=== PATIENT | male | born 1960 | race Caucasian/White ===

== ENCOUNTER 2017-09-29 17:33 | Emergency (ER) | payer MEDICARE ==
[2017-09-29 18:20] LABS: BASOPHILS 0.2 % (0-2); EOSINOPHILS 0.2 % (0-7); HEMATOCRIT 47.9 % (42.0-54.0); HEMOGLOBIN 16.8 g/dL (13.5-17.5); IMMATURE GRANULOCYTES 0.2 % (0-5); LYMPHOCYTES 17.1 % (15-50); MCH 32.1 pg (26.0-34.0); MCHC 35.1 g/dL (31.0-37.0); MCV 91.4 fL (80.0-100.0); MONOCYTES 12.7 % (2-11); NEUTROPHILS 69.6 % (40-80); RBC 5.24 10x6/uL (4.20-6.10); RDW 12.2 % (11.5-14.5)
[2017-09-29 18:33] LABS: PLATELET COUNT 150 10x3/uL (130-400)
[2017-09-29 18:39] LABS: APTT 26.4 SECONDS (22.8-39.4)
[2017-09-29 18:40] LABS: D-DIMER-QUANTITATIVE 0.52 ug/mLFEU (0.20-0.54)
[2017-09-29 18:44] LABS: ALBUMIN 4.1 g/dL (3.4-5.0); ALKALINE PHOSPHATASE 72 U/L (46-116); ALT (SGPT) 38 U/L (10-68); BILIRUBIN - TOTAL 0.28 mg/dL (0.2-1.3); CALC OSMOLALITY 275 mosm/kg (275-300); CALCIUM 8.6 mg/dL (8.5-10.1); CARBON DIOXIDE 24.8 mmol/L (21.0-32.0); CHLORIDE - SERUM 102 mmol/L (98-107); CREATININE - SERUM 1.3 mg/dL (0.6-1.3); GLUCOSE 152 mg/dL (74-106); POTASSIUM - SERUM 3.5 mmol/L (3.5-5.1); PROTEIN - SERUM 8.1 g/dL (6.4-8.2); SODIUM 137 mmol/L (136-145); UREA NITROGEN 10 mg/dL (7-18); eGFR NON AFRICAN AMERICAN 60 mL/min (90-120)
[2017-09-29 18:49] LABS: MAGNESIUM - SERUM 1.9 mg/dL (1.8-2.4)
[2017-09-29 19:00] LABS: TROPONIN-I < 0.017 ng/mL (0.000-0.060)
== END 2017-09-29 21:41 | disposition home or self-care (01) ==
LOC: D.ER 17:33
PROVIDERS: Family Medicine
DX: R07.9 Chest pain, unspecified (principal); K52.9 Noninfective gastroenteritis and colitis, unspecified; I10 Essential (primary) hypertension; I50.9 Heart failure, unspecified

== ENCOUNTER 2017-10-02 08:59 | Observation (INO) | payer MEDICARE ==
[~2017-10-02] VITALS: Ht 170.2 cm; Wt 81.6 kg
--- NOTE | ~2017-10-02 | EC ---
PATIENT:TA CHASE DATE OF SERVICE: 10/02/17 SEX: M MEDICAL RECORD: [id number] DATE OF : 60 LOCATION:D.M2 D.210 AGE OF PATIENT: 57 ADMISSION DATE: 10/02/17 REFERRING PHYSICIAN: INTERPRETING PHYSICIAN: FERNANDO SMALLWOOD MD ECHOCARDIOGRAM REPORT ECHO CHARGES 4 ECHO COMPLETE CLINICAL DIAGNOSIS: CHEST PAIN, HX CCAD/STENTS/HTN ECHOCARDIOGRAPHIC MEASUREMENTS (adult normal given) AC root (d.<3.7cm) 3.6 cm LV Septum d (<1.2 cm> 0.9 cm Valve Excursion 1.8 cm LV Septum (systole) 1.0 cm Left Atria (s.<4.0cm> 3.5 cm LVPW d(<1.2cm) 1.2 cm RV (d.<2.3cm) 4.2 cm LVPW (sytole) 1.6 cm LV diastole(<5.6CM) 5.6 cm MV E-F(>70mm/sec) cm LV systole 4.3 cm LVOT Diameter 1.9 cm MV exc.(>10mm) 1.7 cm Est.ejection fraction (50-75%) % Pericardial Effusion N DOPPLER: LVIT cm/sec A 71.0 cm/sec E 63.0 cm/sec LA cm/sec RVSP mmHg LVOT 117 cm/sec AOP1/2T m/s Asc. Ao 121 cm/sec RVOT 75 cm/sec RA cm/sec PA 119 cm/sec AV Gradient Peak 5.82 mmHg AV Mean 2.92 mmHg AV Area 2.8 cm MV Gradient Peak 2.11 mmHg MV Mean 0.82 mmHg MV Area cm COMMENTS: Environmental Officer: Minnie CASILLAS [employer] Supervisor: Tracy Smallwood TAPE# PACS DATE OF SERVICE: 10/03/2017 PROCEDURE: Transthoracic echocardiogram. FINDINGS: 1. The left ventricle shows evidence of mild left ventricular hypertrophy. Inflow characteristics are consistent with diastolic dysfunction. Ejection fraction is 55% to 60%. Aortic valve is normal. 2. The mitral valve has trace mitral regurgitation, otherwise normal. 3. The tricuspid valve is normal. ECHOCARDIOGRAM REPORT [id number] TA CHASE 4. The pericardium is normal. 5. There is no pleural effusion or pericardial effusion. 6. The right atrium and right ventricle are mildly dilated with normal function. CONCLUSION: The patient has evidence of hypertensive heart disease, otherwise normal echocardiogram. TRANSINT:[id number] Voice Confirmation ID: [id number] DOCUMENT ID: [id number] FERNANDO SMALLWOOD MD at 1140 CC: [id number] DICTATION DATE: 10/03/17 165 MANAGER MAC: 10/03/17 1808 ADM IN [id number] [place] [address]
--- NOTE | ~2017-10-02 | OP ---
PATIENT NAME: TA CHASE MEDICAL RECORD: [id number] :60 LOCATION:D.[facility] D.2108 ADMISSION DATE:10/02/17 SURGEON: PETTY NICHOLAS DO DATE OF OPERATION: 10/04/2017 PROCEDURE: EGD with biopsies. INDICATIONS FOR PROCEDURE: Melena and abdominal pain. SCOPE: Olympus video gastroscope. MEDICATIONS: Propofol 400 mg IV per anesthesia. ESTIMATED BLOOD LOSS: Less than 3-5 mL. COMPLICATIONS: None. FINDINGS: Informed consent was given. The patient was made comfortable with the above medication. After reaching an adequate level of sedation by slow IV push, the patient was placed on his left side. The endoscope was then advanced under direct visualization through the mouth to the second portion of the duodenum. In the proximal esophagus, there were few small patches of ectopic gastric mucosa. The middle and distal esophagus appeared normal. At the GE junction, there was moderate evidence of LA class C reflux induced esophagitis as well as possible Virk esophagus and some congestion, edematous tissue, which was continuous into the cardia. I cannot rule out gastric varices which were extending into the esophagus. There was grade I esophageal varices without bleeding stigmata. Two cold forceps biopsies were taken of the GE junction and cardia simultaneously. The endoscope was advanced beyond the GE junction into the stomach and retroflexed to view the cardia and fundus. Appearances were similar to findings from the proximal side. There was edema and congestion as well as erythema and granularity consistent with moderate to severe gastritis. A biopsy was taken from the cardia from the distal side within the stomach. The body of the stomach appeared normal. In the antrum and prepyloric region, there was some erythema and granularity consistent with gastritis. No random biopsies were taken on this examination to prevent further unnecessary bleeding. The endoscope was advanced beyond the pylorus into the duodenum. The bulb and second portion of the duodenum exhibited severe duodenitis. There were areas of ulcerations and denuded mucosa with mucosal villous atrophy. There were multiple areas of erythema which appeared that they could be hemorrhagic if touched. There were no large penetrating ulcers visualized on the examination. Two cold forceps biopsies were taken from the duodenum to rule out pathology. The endoscope was then withdrawn from the patient. The patient tolerated the procedure well and there were no complications. IMPRESSION: 1. 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 2. Grade I esophageal varices in the distal esophagus. 3. Reflux esophagitis grade C as well as congestion and inflamed mucosa in conjunction with the cardia. 4. A small to moderate sized hiatal hernia, which is likely playing a role in the stressed cardia tissue which is edematous and inflamed. 5. Gastritis. 6. Duodenitis. OPERATIVE REPORT [id number] TA CHASE PLAN AND RECOMMENDATIONS: 1. Return to floor and monitor for further bleeding. There was some bleeding from our biopsies, so further melena is possible from today's procedure. 2. Continue proton pump inhibitor therapy at 40 mg equivalent b.i.d. for 60 days. 3. Follow up biopsy specimen results. 4. Carafate 1 gram p.o. q.i.d. times 2 weeks. 5. Pepcid 20 mg p.o. at bedtime or IV while inpatient. 6. We will follow up biopsy specimen results and treat accordingly if indicated. 7. We will check H. pylori stool antigen to rule out H. pylori. TRANSINT:[id number] Voice Confirmation ID: [id number] DOCUMENT ID: [id number] PETTY NICHOLAS DO at 1444 CC: [id number] DICTATION DATE: 10/04/17 1250 PRESS SERVICE READER: 10/04/17 1337 DIS IN 10/05/17 [facility] [address] [place] [address]
--- NOTE | ~2017-10-02 | HP ---
PATIENT: TA CHASE MEDICAL RECORD: [id number] ACCOUNT: [id number] LOCATION:[address] : 60 ADMISSION DATE: 10/02/17 HISTORY AND PHYSICAL EXAMINATION DATE OF ADMISSION: 10/02/2017 CHIEF COMPLAINT: Abdominal pain and chest pain. HISTORY OF PRESENT ILLNESS: This is a 57-year-old white male followed by Dr. Janes Ramesh but comes over here because his general warehouse worker is Dr. Kilpatrick who presented to the [facility] 3 days ago with right upper quadrant abdominal pain. He has not been able to eat due to this pain for about a week. States he has had some dark stools, no bright red blood. He has had his gallbladder out. Also, 3 days ago, he was complaining of some chest tightness. He felt clammy and sweaty and felt like he was going to pass out but did not. This morning he got up, still has abdominal pain. He went to the bathroom, sat on the commode and the next thing he knows it has been about 2 hours later and wakes up on the floor of the bathroom and he was then brought to the Emergency Room. Hemoccult there was positive. He is not anemic and rest of his lab does not look too bad but he is admitted for GI pain with heme-positive stool and chest pain. PAST MEDICAL AND SURGICAL HISTORY: He has hypertension and hyperlipidemia. Has had coronary artery disease. He states he has had [address] Kilpatrick is his general warehouse worker. 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 He was treated by Donal Spangler and his hepatitis has resolved. He states he has had 2 heart attacks. He reports a colonoscopy by Dr. Sanchez approximately 6 months ago and we do not have a report here. PAST SURGICAL HISTORY: Cholecystectomy, right shoulder surgery, ORIF of right hip fracture, has had 5 back surgeries, has had coronary stents. ALLERGIES: REPORTEDLY TO DEMEROL AND CODEINE. HOME MEDICATIONS: Fenofibrate 160 mg once a day, pravastatin 40 mg once a day, lisinopril 20 mg once a day, carvedilol 6.25 mg twice a day, amlodipine 10 mg once a day, Purling 10 p.r.n., clonidine 0.1 if his systolic pressure goes above 200. SOCIAL HISTORY: He is single, disabled from his back injuries. FAMILY HISTORY: Father is alive. He has hypertension and diabetes. Mother with what sounds like renal failure. REVIEW OF SYSTEMS: GENERAL: He reports weight loss over the last week because of his abdominal pain and is not able to eat. HEENT: No particular sinus or allergy problems. RESPIRATORY: No diagnosis of emphysema or asthma. CARDIAC: Has a history of coronary artery disease with 2 MIs and has stents, followed by Dr. Kilpatrick. GASTROINTESTINAL: He has had a history of hepatitis C, now treated. Reportedly colonoscopy about 6 months ago, it was okay. He states he has never had an upper GI or an EGD. HISTORY AND PHYSICAL [id number] TA CHASE MUSCULOSKELETAL: Basically has chronic back pain. NEUROLOGIC: No migraines. No seizures. PSYCHIATRIC: Denies depression or melancholia. PHYSICAL EXAMINATION: VITAL SIGNS: Temperature 97.5, pulse 61, respirations 21, blood pressure 140/102, O2 sat 98%. GENERAL: He does not appear to be in acute distress at this time. HEENT: Grossly within normal limits. NECK: Supple. No JVD or bruit. HEART: Regular rate and rhythm. LUNGS: Fairly clear. ABDOMEN: Soft. There is tenderness in the epigastric and right upper quadrant area. No mass. No guarding, no rebound. Bowel sounds are active. EXTREMITIES: No edema. NEUROLOGIC: Intact. LABORATORY DATA: Hemoccult was positive. CT of the abdomen and pelvis shows nothing acute. CT of the chest shows nothing acute. EKG has nonspecific changes. Troponin has been less than 0.017, 3 times. Urinalysis looks good. CBC with a white count of 5300, hemoglobin 17.3, hematocrit 49.3, platelets number 124,000. Basic metabolic panel is all okay. Liver functions are okay. Amylase and lipase were all okay. ASSESSMENT: 1. Epigastric abdominal pain. 2. Heme-positive stool. 3. Chest pain with a history of coronary artery disease. PLAN: We will consult GI here for this heme-positive stool and ongoing abdominal pain. We will ask cardiology to see him. Even though his cardiac enzymes were all normal, he states that some of his symptoms were like when he has had some blockages noted. Other tests and procedures as warranted. TRANSINT:[id number] Voice Confirmation ID: [id number] DOCUMENT ID: [id number] HISTORY AND PHYSICAL [id number] TA CHASE WILLIAM MD at 0748 CC: [id number] DICTATION DATE: 10/02/172205 LAWN MOWER: 10/02/17 2310 ADM IN [id number] [place] [address]
--- NOTE | ~2017-10-02 | DS ---
PATIENT:TA CHASE :60 MEDICAL RECORD: [id number] DISCHARGE SUMMARY ADMISSION DATE: 10/02/17 DISCHARGE DATE: 10/05/17 DATE OF ADMISSION: 10/02/2017 DATE OF DISCHARGE: 10/05/2017 DISCHARGE DIAGNOSES: 1. Chest pain. 2. Melena. 3. Abdominal pain. HISTORY OF PRESENT ILLNESS: This 57-year-old presented complaining of abdominal and chest pains. He was not able to eat much in the last week due to pain in the abdomen. He noted some dark stool, no red or bright red blood. About 3 days before admission, he came to the ER with this abdominal pain felt clammy and sweaty, but that resolved, he was sent home. He came back on day of admission with worsening symptoms plus he had gone to the bathroom, sat down on the commode, and next thing he knew he woke up on the floor. He states it had been 2 hours that he was down. He was brought in, his cardiac enzymes were negative times 3. Cardiology was consulted as he has history of coronary artery disease. Echocardiogram was okay. They felt there was nothing more cardiac marsh to do at this time. GI was consulted and the patient underwent EGD on 10/04/2017, showing ectopic gastric mucosa in the proximal esophagus, grade I varices in the distal esophagus and LA class C reflux. There was inflamed tissue at the GE junction and biopsy was obtained. He was started on Protonix 40 mg twice a day to take for 60 days and Carafate 1 gm before meals and at bedtime for 14 days. He feels much better and wants to go home today. DISCHARGE MEDICATIONS: Include Carafate suspension 1 gm before means and at bedtime; Protonix 40 mg twice a day; continue pravastatin 40 mg once a day; lisinopril 20 mg once a day; fenofibrate 160 mg once a day; carvedilol 6.25 mg twice a day; Norvasc 10 mg once a day. He will follow up with Dr. Modi or Dr. Sanchez, whichever one he wants to see. He will follow up with Dr. Janes Ramesh his PCP in 1 to 2 weeks. TRANSINT:[id number] Voice Confirmation ID: [id number] DOCUMENT ID: [id number] BRYAN WHITMAN MD at 1202 CC: [id number] DICTATION DATE: 10/05/17 0850 DIRECTOR CASE MANAGEMENT: 10/05/17 1142 DIS IN 10/05/17 [place] [id number] [place] [address]
[2017-10-02 09:21] LABS: BASOPHILS 0.4 % (0-2); EOSINOPHILS 0.2 % (0-7); HEMATOCRIT 49.3 % (42.0-54.0); HEMOGLOBIN 17.6 g/dL (13.5-17.5); IMMATURE GRANULOCYTES 0.2 % (0-5); LYMPHOCYTES 34.1 % (15-50); MCH 31.8 pg (26.0-34.0); MCHC 35.7 g/dL (31.0-37.0); MEAN PLATELET VOLUME 11.5 fL (7.4-10.4); MONOCYTES 11.6 % (2-11); NEUTROPHILS 53.5 % (40-80); PLATELET COUNT 124 10x3/uL (130-400); RBC 5.54 10x6/uL (4.20-6.10); RDW 12.3 % (11.5-14.5); WBC 5.3 10x3/uL (4.8-10.8)
[2017-10-02 09:51] LABS: ANION GAP 15.8 mmol/L (8-16); BILIRUBIN - TOTAL 0.39 mg/dL (0.2-1.3); CALCIUM 8.9 mg/dL (8.5-10.1); CARBON DIOXIDE 21.8 mmol/L (21.0-32.0); CREATININE - SERUM 1.3 mg/dL (0.6-1.3); POTASSIUM - SERUM 3.6 mmol/L (3.5-5.1); PROTEIN - SERUM 8.1 g/dL (6.4-8.2)
[2017-10-02 10:04] LABS: CKMB 0.7 U/L (0.0-3.6); CREATINE KINASE 149 UL (21-232); TROPONIN-I < 0.017 ng/mL (0.000-0.060)
[2017-10-02 14:44] LABS: APPEARANCE CLEAR (CLEAR); BILIRUBIN NEGATIVE (NEGATIVE); COLOR YELLOW (YELLOW); GLUCOSE NEGATIVE (NEGATIVE); KETONE NEGATIVE (NEGATIVE); NITRITE NEGATIVE (NEGATIVE); PROTEIN NEGATIVE (NEGATIVE); UROBILINOGEN NORMAL (NORMAL)
[2017-10-02] MEDS ORDERED: PRAVACHOL40 MG PO (17:13)
[2017-10-02] MEDS ORDERED: PRINIVIL20 MG PO (17:14)
[2017-10-02 17:22] LABS: CKMB 0.7 U/L (0.0-3.6); CREATINE KINASE 125 UL (21-232); TROPONIN-I < 0.017 ng/mL (0.000-0.060)
[2017-10-02 17:46] VITALS: BP 162/99
[2017-10-02 18:07] VITALS: BP 155/86; BMI 27.9
[2017-10-02 21:07] VITALS: BP 140/102
[2017-10-02 21:46] LABS: CREATINE KINASE 153 UL (21-232)
[2017-10-02 21:51] LABS: TROPONIN-I < 0.017 ng/mL (0.000-0.060)
[2017-10-02] MEDS ORDERED: COREG6.25 MG PO (21:56)
[2017-10-02] MEDS ORDERED: FENOFIBRATE160 MG PO (21:56)
[2017-10-02] MEDS ORDERED: NORVASC10 MG PO (21:57)
[2017-10-03 03:50] LABS: BASOPHILS 0.3 % (0-2); EOSINOPHILS 0.5 % (0-7); HEMOGLOBIN 14.3 g/dL (13.5-17.5); LYMPHOCYTES 46.8 % (15-50); MCH 31.3 pg (26.0-34.0); MCHC 34.9 g/dL (31.0-37.0); MCV 89.7 fL (80.0-100.0); MEAN PLATELET VOLUME 11.5 fL (7.4-10.4); MONOCYTES 11.4 % (2-11); PLATELET COUNT 106 10x3/uL (130-400); RBC 4.57 10x6/uL (4.20-6.10); RDW 12.2 % (11.5-14.5)
[2017-10-03 04:04] LABS: WBC 3.7 10x3/uL (4.8-10.8)
[2017-10-03 04:19] LABS: ALBUMIN 3.3 g/dL (3.4-5.0); ALKALINE PHOSPHATASE 58 U/L (46-116); ALT (SGPT) 36 U/L (10-68); AMYLASE - SERUM 75 U/L (25-115); CALC OSMOLALITY 269 mosm/kg (275-300); CALCIUM 7.9 mg/dL (8.5-10.1); CARBON DIOXIDE 27.5 mmol/L (21.0-32.0); CHLORIDE - SERUM 101 mmol/L (98-107); CREATINE KINASE 158 UL (21-232); GLUCOSE 114 mg/dL (74-106); LIPASE 149 U/L (73-393); POTASSIUM - SERUM 3.6 mmol/L (3.5-5.1); PROTEIN - SERUM 6.6 g/dL (6.4-8.2); SODIUM 135 mmol/L (136-145); TROPONIN-I < 0.017 ng/mL (0.000-0.060); UREA NITROGEN 9 mg/dL (7-18); eGFR NON AFRICAN AMERICAN 82 mL/min (90-120)
[2017-10-03 06:27] VITALS: BP 168/108
[2017-10-03 08:33] VITALS: BP 99/56
[2017-10-03 11:58] VITALS: BP 110/82
[2017-10-03 12:09] VITALS: Ht 170.2 cm; Wt 81.6 kg
[2017-10-03 16:26] VITALS: BP 144/94
[2017-10-03 20:00] VITALS: BP 144/85
[2017-10-04] VITALS: BP 123/75; BP 140/86
[2017-10-04 04:00] VITALS: BP 138/76
[2017-10-04 05:43] LABS: BASOPHILS 0.2 % (0-2); HEMATOCRIT 41.2 % (42.0-54.0); HEMOGLOBIN 14.3 g/dL (13.5-17.5); IMMATURE GRANULOCYTES 0.2 % (0-5); LYMPHOCYTES 35.7 % (15-50); MCH 30.8 pg (26.0-34.0); MCHC 34.7 g/dL (31.0-37.0); MCV 88.8 fL (80.0-100.0); MEAN PLATELET VOLUME 11.5 fL (7.4-10.4); MONOCYTES 6.6 % (2-11); NEUTROPHILS 56.3 % (40-80); PLATELET COUNT 108 10x3/uL (130-400); RBC 4.64 10x6/uL (4.20-6.10); RDW 12.1 % (11.5-14.5)
[2017-10-04 05:52] LABS: WBC 5.9 10x3/uL (4.8-10.8)
[2017-10-04 05:58] LABS: ANION GAP 12.6 mmol/L (8-16); CALCIUM 8.2 mg/dL (8.5-10.1); CARBON DIOXIDE 28.9 mmol/L (21.0-32.0); CREATININE - SERUM 1.1 mg/dL (0.6-1.3); POTASSIUM - SERUM 3.5 mmol/L (3.5-5.1)
[2017-10-04 08:30] VITALS: BP 141/92
[2017-10-04 12:16] VITALS: BP 135/87
[2017-10-04 20:40] VITALS: BP 134/79
[2017-10-05 06:17] VITALS: BP 131/91
[2017-10-05 07:50] VITALS: BP 136/92
[2017-10-05] MEDS ORDERED: CARAFATE1 G/10 ML PO (08:41)
[2017-10-05] MEDS ORDERED: PROTONIX40 MG PO (08:42)
== END 2017-10-05 12:09 | disposition home or self-care (01) ==
LOC: D.ER 08:59 → D.M2 16:12 → OBSVTIME 17:00 → D.M2 10-05 12:09
PROVIDERS: Family Medicine
DX: K29.70 Gastritis, unspecified, without bleeding (principal); K44.9 Diaphragmatic hernia without obstruction or gangrene; K29.80 Duodenitis without bleeding; I85.00 Esophageal varices without bleeding; K22.70 Barrett's esophagus without dysplasia; K21.0 Gastro-esophageal reflux disease with esophagitis; K74.60 Unspecified cirrhosis of liver; B19.20 Unspecified viral hepatitis C without hepatic coma; I25.10 Atherosclerotic heart disease of native coronary artery without angina pectoris; Z95.5 Presence of coronary angioplasty implant and graft; E78.5 Hyperlipidemia, unspecified; I10 Essential (primary) hypertension